=== PATIENT | male | born 1990 | race Caucasian/White ===

== ENCOUNTER 2020-03-07 18:56 | Emergency (ER) | payer SELFPAY ==
[2020-03-07 19:00] VITALS: PULSE 92; RESP 18; TEMP 36.7; O2SAT 99; BMI 22.4
--- NOTE | 2020-03-07 19:07 | ED_ITS ---
HPI - General Adult General: Chief complaint: General Medical Stated complaint: finger infected Time Seen by Provider: 03/07/20 19:07 History of Present Illness: HPI narrative: Patient is a 29-year-old male who comes to the ED with finger swelling and pain. Patient says that approximately 4 days ago he cut the third digit of his left hand with pocketknife. Cut over the joint. His finger now has erythema, warmth and swelling. He currently rates his pain a 9 out of 10. He says the swelling makes it hard for him to move and bend his finger. He has not taken anything for pain today. Patient says he does not need a tetanus shot and had 1 within the last 5 years. Patient is a history of MRSA and staph infections. Associated symptoms: Deny chest pain, dyspnea, headache(s), nausea, rash, palpitations or vomiting Review of Systems Const: Denies: fever(s), chills or fatigue Eyes: Denies: change in vision or eye discomfort ENMT: Denies: throat pain, odynophagia, nasal discharge or nasal congestion Card: Denies: chest pain, palpitations, edema, swelling of feet/ankles, dyspnea on exertion or orthopnea Resp: Denies: dyspnea, productive cough or non-productive cough GI: Denies: abdominal pain, nausea, vomiting, diarrhea, constipation or hematochezia : Denies: flank pain, difficulty urinating, dysuria or hematuria Musc: Denies: neck pain, back pain or extremity swelling Skin/Breast: Reports: new lesions; Denies: rash Neuro: Denies: headache(s), numbness in extremities or weakness in extremities Physical Exam Const: COMMON NORMALS: no acute distress, patient oriented x3 and alert GENERAL APPEARANCE: cooperative and comfortable HENMT: COMMON NORMALS: normocephalic HEAD & SCALP: normocephalic MOUTH: Normal oral and palatal mucosa present THROAT: posterior oropharynx normal and uvula midline Neck/C-Spine: COMMON NORMALS: supple GENERAL: Yes normal visual inspection Resp: COMMON NORMALS: normal respiratory effort, No retractions, No use of accessory muscles and clear to auscultation bilaterally AUSCULTATION: clear to auscultation bilaterally Cardio: COMMON NORMALS: regular rate, regular rhythm, S1 normal heart sound present, S2 normal heart sound present, No gallops present (Cardio), No clicks present (Cardio), No murmurs present (Cardio) and Peripheral pulses 2+ throughout RATE: regular rate RHYTHM: regular rhythm HEART SOUNDS: S1 normal heart sound present and S2 normal heart sound present PERIPHERAL PULSES: Peripheral pulses 2+ throughout GI: COMMON NORMALS: Normal to inspection, nondistended, normoactive bowel sounds present, Soft to palpation, non-tender and no masses PALPATION: Yes Soft to palpation : COMMON NORMALS: Yes no CVA tenderness BLADDER/KIDNEY EXAM: Yes no CVA tenderness Back/Pelvis: COMMON NORMALS: no CVA tenderness Extremity: COMMON NORMALS: capillary refill normal NARRATIVE EXTREMITY EXAM: Left hand?patient has cut that is healing on his third digit over his PIP joint. No purulent drainage seen. There is swelling, erythema, tenderness and warmth. Exam findings are suggestive of cellulitis. Neuro: COMMON NORMALS: patient oriented x3 and moves all extremities SENSORIUM/ORIENTATION: Yes alert Skin: NARRATIVE SKIN EXAM: Left hand?patient has cut that is healing on his third digit over his PIP joint. No purulent drainage seen. There is swelling, erythema, tenderness and warmth. Exam findings are suggestive of cellulitis. GENERAL SKIN EXAM: dry skin Course Vital Signs: Vital signs: Vital Signs Temperature 98.0 F 03/07/20 19:00 Pulse Rate 92 03/07/20 19:00 Respiratory Rate 16 03/07/20 20:27 Pulse Oximetry 99 03/07/20 19:00 MDM - General Adult MDM Narrative: Medical decision making narrative: Patient is a 29-year-old male comes to the ED with left hand third digit erythema and swelling. Patient cut himself with a knife approximately 4 days ago on third digit. He is developed increased pain erythema and swelling. Physical exam is suggestive of cellulitis. X-ray of left hand shows no acute fractures or findings. Patient was given a dose of Rocephin IM while here in the ED and then sent home with a prescription for Bactrim. He was told to return to ED if symptoms do not improve over the next 3 days. Follow-up with PCP in 7 to 10 days. Patient understood and agreed with plan. Imaging Data^: Xray Ortho: Attestation: I personally reviewed and interpreted this imaging study as follows: Radiologist's impression: [address] [address] XRay Report Signed Patient: Chava Correia Unit #: [id number] : 1990 Age/Sex: 29 / M ADM Date: 03/07/20 Loc: ER Room/Bed: Attending Dr: Ordering Provider/Ordering MD: Jorge Sabillon Date of Service: 03/07/20 Procedure(s): XR hand LT min 3V* 79839 Accession Number(s): [id number] Report Number: [id number] PROCEDURE INFORMATION: Exam: XR Left Hand Exam date and time: 03/07/2020 7:40 PM Age: 29 years old Clinical indication: Injury or trauma; Other: Injury to hand; Wound; Left; Additional info: Injury to 3rd digit TECHNIQUE: Imaging protocol: XR Left hand. Views: 3 or more views. COMPARISON: No relevant prior studies available. FINDINGS: Bones/joints: No visible acute osseous abnormality, fracture, subluxation, or dislocation. Soft tissues: Soft tissue swelling 3rd digit. No visible radiopaque foreign body or soft tissue emphysema. XR/XR hand LT min 3V* [id number] IMPRESSION: 1. No visible acute osseous abnormality. 2. Soft tissue swelling 3rd digit. Dictated By: Nayan Pearson Signed By: Nayan Pearson Signed Date/Time: 03/07/202099 DD/ 58 Discharge Plan Discharge Patient Disposition: Home Clinical Impression: Cellulitis Qualifiers: Site of cellulitis: extremity Site of cellulitis of extremity: finger Laterality: left Qualified Code(s): L03.012 - Cellulitis of left finger Condition: Stable Prescriptions: New Bactrim DS 800-160 mg tablet 1 tab PO BID 10 Days Qty: 20 RF: 0 No Action No Known Home Medications RF: 0 Discharge Orders: Discharge Order (Routine); Ordered 03/07/20 Ordered By: Jorge Sabillon Discharge Diet: Regular Discharge Activity: Increase activity as tolerated Patient Instructions: Cellulitis (ED) Activity Restrictions/Additional Instructions: Follow-up with medical provider as directed. Take medications as prescribed. Return to the ER or your medical provider if condition worsens. Please read and understand discharge instructions. If any questions, please ask. Discharge Date/Time: 03/07/20 20:27 Coding Level of Care Code ED Melt House Centrifugal Operator for Chg Fwd Exam Comprehensive
--- NOTE | 2020-03-07 19:12 | XRR_ITS ---
PROCEDURE INFORMATION: Exam: XR Left Hand Exam date and time: 03/07/2020 7:40 PM Age: 29 years old Clinical indication: Injury or trauma; Other: Injury to hand; Wound; Left; Additional info: Injury to 3rd digit TECHNIQUE: Imaging protocol: XR Left hand. Views: 3 or more views. COMPARISON: No relevant prior studies available. FINDINGS: Bones/joints: No visible acute osseous abnormality, fracture, subluxation, or dislocation. Soft tissues: Soft tissue swelling 3rd digit. No visible radiopaque foreign body or soft tissue emphysema. XR/XR hand LT min 3V* [id number] IMPRESSION: 1. No visible acute osseous abnormality. 2. Soft tissue swelling 3rd digit.
[2020-03-07] MEDS: HYDROcodone-acetaminophen 7.5-325 mg Tablet 1 TAB PO (19:23)
[2020-03-07] MEDS: cefTRIAXone 1,000 mg SDV 1000 MG IM (19:23)
[2020-03-07 20:27] VITALS: RESP 16
== END 2020-03-07 20:27 | disposition home or self-care (01) ==
PROVIDERS: Emergency Provider Physician Assistant
DX: L03.012 Cellulitis of left finger (principal)
CPT/HCPCS: 12345; 73130; 96372; 99282; 99283; J0696

== ENCOUNTER 2020-06-20 19:31 | Inpatient (IN) | payer SELFPAY ==
[2020-06-20 19:33] VITALS: BP 149/103; PULSE 105; RESP 18; TEMP 36.6; O2SAT 99; BMI 20.9
[2020-06-20 19:38] VITALS: BP 149/103; PULSE 105; RESP 18
--- NOTE | 2020-06-20 19:43 | ED_ITS ---
HPI - Psych General: Chief Complaint: Psychiatric Symptoms Stated Complaint: si Time Seen by Provider: 06/20/20 19:42 History of Present Illness: HPI Narrative: Patient is a 29-year-old male comes to the ED with SI. Patient said he has been really down and depressed over the past 2 weeks because he has not getting to see his kids. He also admits to taking speed last night. He says today he feels really depressed and wants to shoot himself in the head. Denies any HI, auditory or visual hallucinations. Endorses having some anxiety as well. Associated symptoms: Reports depression and suicidal ideation; Deny auditory hallucinations, visual hallucinations or homicidal ideation Review of Systems Const: Denies: fever(s), chills or fatigue Eyes: Denies: change in vision or eye discomfort ENMT: Denies: throat pain, odynophagia, nasal discharge or nasal congestion Card: Denies: chest pain, palpitations, edema, swelling of feet/ankles, dyspnea on exertion or orthopnea Resp: Denies: dyspnea, productive cough or non-productive cough GI: Denies: abdominal pain, nausea, vomiting, diarrhea, constipation or hematochezia : Denies: flank pain, difficulty urinating, dysuria or hematuria Musc: Denies: neck pain, back pain or extremity swelling Skin/Breast: Denies: rash or new lesions Neuro: Denies: headache(s), numbness in extremities or weakness in extremities Psych: Reports: depression and suicidal ideation; Denies: visual hallucinations, auditory hallucinations or homicidal ideation Physical Exam Const: COMMON NORMALS: no acute distress, patient oriented x3 and alert GE NERAL APPEARANCE: cooperative, comfortable and anxious HENMT: COMMON NORMALS: normocephalic HEAD & SCALP: normocephalic MOUTH: Normal oral and palatal mucosa present THROAT: posterior oropharynx normal and uvula midline Neck/C-Spine: COMMON NORMALS: supple GENERAL: Yes normal visual inspection Resp: COMMON NORMALS: normal respiratory effort, No retractions, No use of accessory muscles and clear to auscultation bilaterally AUSCULTATION: clear to auscultation bilaterally Cardio: COMMON NORMALS: regular rate, regular rhythm, S1 normal heart sound present, S2 normal heart sound present, No gallops present (Cardio), No clicks present (Cardio), No murmurs present (Cardio) and Peripheral pulses 2+ throughout RATE: regular rate RHYTHM: regular rhythm HEART SOUNDS: S1 normal heart sound present and S2 normal heart sound present PERIPHERAL PULSES: Peripheral pulses 2+ throughout GI: COMMON NORMALS: Normal to inspection, nondistended, normoactive bowel sounds present, Soft to palpation, non-tender and no masses PALPATION: Yes Soft to palpation : COMMON NORMALS: Yes no CVA tenderness BLADDER/KIDNEY EXAM: Yes no CVA tenderness Back/Pelvis: COMMON NORMALS: no CVA tenderness Neuro: COMMON NORMALS: patient oriented x3 and moves all extremities SENSORIUM/ORIENTATION: Yes alert Psych: COMMON NORMALS: Normal thought process present APPEARANCE: Yes grossly normal ATTITUDE: Yes calm ACTIVITY/MOTOR BEHAVIOR: Yes Avoids eye contact (attititude/behavior) SPEECH: Yes soft MOOD & AFFECT: Yes depressed mood and Yes anxious THOUGHT PROCESS: Normal thought process present THOUGHT CONTENT: Yes Suicidality present, No Homicidality present and No Hallucination(s) present ATTENTION/CONCENTRATION: Yes attention grossly intact and Yes concentration grossly intact MEMORY/COGNITION: Yes memory grossly intact and Yes cognition grossly intact INSIGHT: Fair insight present (Psych) JUDGEMENT: Fair judgement present (Psych) Skin: GENERAL SKIN EXAM: dry skin MDM - Psych MDM Narrative: Medical decision making narrative: Patient is a 29-year-old male comes to the ED with SI. Patient is depressed and says that he has been thinking about shooting himself in the head. He also admits to using some speed 2 days ago. He is willing to be admitted for evaluation. I contacted Dr. Ball and he accepted patient to be admitted to NPU. Before patient was taken up to the floor he was wanting to be discharged and go back home. I told him I would set up a video conference with Dr. Hernadez from to evaluate. Dr. Hernadez performed a video conference and suggested patient admits to the NPU and patient willingly agreed. Lab Data: Attestation: I reviewed the patient's lab results. Labs: Lab Results 06/20/20 06/20/20 Range/Units 20:15 20:15 WBC 9.4 (4.0-10.0) 10^3/ uL RBC 4.81 (4.1-5.3) 10^6/u L Hgb 14.7 (11.7-16.6) g/dL Hct 44.3 (42.0-52.0) % MCV 92.1 (80-94) fL MCH 30.6 (28.0-34.0) pg MCHC 33.2 (30.0-36.0) g/dL RDW 11.9 L (12.1-15.1) % Plt Count 241 (130-400) 10^3/c mm MPV 9.8 (7.4-10.4) fL Neut % (Auto) 69.7 % Lymph % (Auto) 16.8 % [place] % (Auto) 7.5 % Eos % (Auto) 4.6 % Baso % (Auto) 1.1 % Neut # (Auto) 6.58 (1.8-7.7) 10^3/u L Lymph # (Auto) 1.6 (0.8-4.8) 10^3/u L [place] # (Auto) 0.7 (0.2-0.9) 10^3/u L Eos # (Auto) 0.4 (0.0-0.8) 10^3/u L Baso # (Auto) 0.1 (0.0-0.1) 10^3/u L Nucleated RBC % (a uto) 0 % Nucleated RBCs # 0.0 /100WBC Sodium 138 (136-145) mmol/L Potassium 4.0 (3.5-5.1) mmol/L Chloride 100 (98-107) mmol/L Carbon Dioxide 30 H (22-29) mmol/L Anion Gap 12.0 (5-19) BUN 11 (6-20) mg/dL Creatinine 0.9 (0.7-1.2) mg/dL GFR Calculation 99.1 (90-130) mL/min Glucose 115 (65-115) mg/dL Calculated Osmolal ity 286 (285-295) mOsm/k g Calcium 9.1 (8.5-10.5) mg/dL Total Bilirubin 0.5 (0.15-1.2) mg/dL AST 50 H (0-40) U/L ALT 110 H (0-41) U/L Alkaline Phosphata se 95 (40-130) IU/L Total Protein 6.9 (6.6-8.7) g/dL Albumin 4.1 (3.5-5.2) g/dL Globulin 2.8 (1.3-4.6) g/dL Salicylates < 0.3 L (3-10) mg/dL Acetaminophen < 5.0 L (10-30) ug/mL Ethyl Alcohol < 10 (0-10) mg/dL Discharge Plan Discharge Admit Provider: Darío Ball Coding Level of Care Code ED Business Management Analyst for Chg Fwd Exam Comprehensive
[2020-06-20 19:50] VITALS: BP 142/88; PULSE 94; RESP 16; O2SAT 99
[2020-06-20 20:25] LABS: Basophils # 0.1 10^3/uL (0.0-0.1); Basophils % 1.1 %; Eosinophils # 0.4 10^3/uL (0.0-0.8); Eosinophils % 4.6 %; Hematocrit 44.3 % (42.0-52.0); Hemoglobin 14.7 g/dL (11.7-16.6); Lymphocytes # 1.6 10^3/uL (0.8-4.8); Lymphocytes % 16.8 %; Mean Corpuscular HGB Conc 33.2 g/dL (30.0-36.0); Mean Corpuscular Hemoglobin 30.6 pg (28.0-34.0); Mean Corpuscular Volume 92.1 fL (80-94); Mean Platelet Volume 9.8 fL (7.4-10.4); Monocytes # 0.7 10^3/uL (0.2-0.9); Monocytes % 7.5 %; Neutrophils # 6.58 10^3/uL (1.8-7.7); Neutrophils % 69.7 %; Nucleated Red Blood Cells % 0 %; Platelet Count 241 10^3/cmm (130-400); Red Blood Count 4.81 10^6/uL (4.1-5.3); Red Cell Distribution Width 11.9 % (12.1-15.1); White Blood Count 9.4 10^3/uL (4.0-10.0)
[2020-06-20 20:45] LABS: Alanine Aminotransferase 110 U/L (0-41); Albumin Level 4.1 g/dL (3.5-5.2); Alkaline Phosphatase 95 IU/L (40-130); Aspartate Amino Transferase 50 U/L (0-40); Blood Urea Nitrogen 11 mg/dL (6-20); Calcium 9.1 mg/dL (8.5-10.5); Carbon Dioxide 30 mmol/L (22-29); Chloride 100 mmol/L (98-107); Globulin 2.8 g/dL (1.3-4.6); Glomerular Filtration Rate 99.1 mL/min (90-130); Glucose 115 mg/dL (65-115); Osmolality Calculated 286 mOsm/kg (285-295); Sodium 138 mmol/L (136-145); Total Bilirubin 0.5 mg/dL (0.15-1.2); Total Protein 6.9 g/dL (6.6-8.7)
[2020-06-20] MEDS: LORazepam 2 mg Tablet PO (20:51)
[2020-06-20 20:52] LABS: Acetaminophen < 5.0 ug/mL (10-30); Alcohol Level < 10 mg/dL (0-10); Salicylate < 0.3 mg/dL (3-10)
[2020-06-20 21:32] VITALS: BP 144/91; PULSE 99; RESP 16; O2SAT 99
[2020-06-20 23:35] VITALS: BP 136/87; PULSE 104; RESP 18; TEMP 36.6; O2SAT 95
[2020-06-21 06:00] VITALS: BP 111/51; PULSE 121; RESP 17; TEMP 36.7; O2SAT 100
--- NOTE | 2020-06-21 11:45 | P.HP_ITS ---
Providers/Chief Complaint Admitting Physician: Darío Ball DO Chief Complaint: Suicidal ideation with plan to shoot himself HPI NPU History of Present Illness Chava Correia is a 29 year old male who initially reported no psychiatric history in the emergency department but subsequently states that he has been treated off and on throughout his teens with mood symptoms and ADHD as well as longstanding history of polysubstance abuse reporting that he used to be a heroin addict currently presenting with suicidal ideation stating that he was wanting to shoot himself in the head. Patient states that he has multiple stressors to include financial, unstable living arrangement, losing his kids and ongoing strain with mother of his children. He had reported in the emergency department that he is experiencing depressive symptoms over the past couple weeks which appear to be exacerbated by ongoing stressors. He denies any recent treatment by mental health. Patient reports recent methamphetamine use but states that this was the first time in a long time but also reports using marijuana on a daily basis. Patient reports remote use of heroin and states that he has a history of opioid dependence but denies any recent opiate use. Patient is a difficult historian secondary to anger and irritability stating that he is no longer suicidal and wants to leave the hospital. Patient states that he has been experiencing significant depressive symptoms, who would not after having the kids taken from them and having people F-ing with her bank account. Patient states that the only thing that helps him is Klonopin 0.5 mg twice daily which she reports previously being prescribed while he was living in [place] for his anxiety and depression. He states that he cannot tolerate any antidepressants because it makes him feel loopy. He states he has no interest in starting any medication at this time. He denies any psychotic symptoms, denies any auditory or visual destinations, denies any delusions although he does report some paranoia about people following him that her associates of his ex-girlfriend/mother of his children. He reports having an unstable living situation and was recently living with a friend and states that he would stay at a hotel after leaving the hospital. Review of Systems General: Reports: 10 or more systems reviewed and unremarkable except in HPI and below Meds NPU Home Medications Medication Instructions Recorded Confirmed Last Taken Type No Known Home Medications 03/07/20 06/21/20 Unknown History Allergies Allergy/AdvReac Type Severity Reaction Status Date / Time clindamycin Allergy ALGY-Rash Verified 06/20/20 19:38 [facility] N[facility] Other Psychiatric History: Other Psychiatric History: Patient states seeing a counselor and psychiatrist during his teens, reports last contact with a mental health provider within the past year while he was living in [place], states that he was being treated with Klonopin 0.5 mg twice daily for depression and anxiety, states that he does not tolerate antidepressants Denies any history of psychiatric hospitalization Denies any history of suicide attempts or self-harm behavior Mental Status Exam MSE Comments: Appears stated age, unshaven, appropriately groomed and dressed, initially calm and cooperative but subsequently irritable and angry, eye contact Psychomotor activity is neither increased nor decreased although demonstrated some verbal agitation which was easily redirected Speech is normal rate and volume, spontaneous, clear articulation, not pressured, cursing I am very upset, angry, , congruent affect, not labile Alert and oriented to person, place, time, situation Memory and concentration appear to be intact per interview Intellectual functioning appears to be average at best based on vocabulary, interview Thought process, linear, no flight of ideas, no looseness of association Thought content, no delusions, no hallucinations, no suicidal or homicidal ideation Insight and judgment is fair at best given ongoing substance use in the context of multiple life stressors as well as lack of insight into the events leading to his hospitalization and the serious nature of the consequences of his reported suicidal thoughts with a lethal means and need for treatment Vitals/I&O/Wt Last Vital Signs Temp 98.0 F 06/21/20 06:00 Pulse 121 H 06/21/20 06:00 Resp 17 06/21/20 06:00 BP 111/51 06/21/20 06:00 Pulse Ox 100 06/21/20 06:00 Weight last 48 hrs Weight 70.307 kg Physical Exam Narrative: EXAM NARRATIVE: Emergency department physical examination prior to admission was reviewed Data NPU : 06/20/20 20:15 06/20/20 20:15 A&P Assessment and plan (1) Suicidal ideation: Status: Acute (2) Depressive disorder: Status: Acute (3) Cannabis abuse: Status: Acute (4) Methamphetamine abuse: Status: Acute Additional A&P Information Patient presenting to the emergency department requesting treatment for suicidal ideation making statement that he wanted to shoot himself in the head, in the context of multiple ongoing stressors, worsening depressive symptoms over the past couple weeks and ongoing substance use. Patient would benefit from observation for any worsening suicidal ideation and depressive symptoms as well as coordination for post discharge care. Patient currently refusing any antidepressant treatment for depressive symptoms and continues to be irritable and angry with lack of insight into the serious nature of his reported complaints. INVOLUNTARY ADMIT to NPU Discussed risks, benefits and alternatives to antidepressant treatment targeting his depressive symptoms as well as history of significant anxiety symptoms which the patient refused at this time. Also discussed benefit of observation given recent worsening suicidal ideation in the context of ongoing stressors Coordinate with social work for safe discharge including post discharge counseling targeting more adaptive coping strategies as well as substance counseling Involuntary Hold Information 96 Hour Hold: 96 Hour Involuntary Admission: Yes 96 Hour Hold Start Date: 06/21/20 Attestations NPU Medical Necessity Statement*: Patient required psychiatric hospitalization given recent suicidal ideation with intent to use lethal means as well as worsening depressive symptoms requiring observation given patient's refusal for medication stabilization and ongoing substance use. Anticipate duration of patient's hospital stay to exceed 2 midnights Coding Level of Care Code Acute Lay Out Machine Operator for [facility] Diagnoses Suicidal ideation R45.851 Depressive disorder F32.9 Cannabis abuse F12.10 Methamphetamine abuse F15.10
[2020-06-21 14:00] VITALS: RESP 18
--- NOTE | 2020-06-21 14:40 | PC.NURSE ---
pt refused vitals @1411/nathan
[2020-06-21 20:05] VITALS: BP 113/67; PULSE 97; RESP 16; TEMP 36.5; O2SAT 97
--- NOTE | 2020-06-21 20:58 | PC.NURSE ---
PATIENT AT [facility] WANTS TO TALK ON TELEPSYCH WITH DR PADILLA BECAUSE HE IS NOT SUICIDAL AND WANTS TO GET OUT OF HERE. INFORMED THAT DR PADILLA NOT HALL COORDINATOR. DID CALL DR YOO, SAYS PATIENT IS ON 96 HOUR HOLD AND HE SAID WAS GOING TO KILL SELF WITH GUN AND NO HE CAN NOT LEAVE. HAS TO BE REEVALUATED IN AM . PATIENT STOMPED OFF DOWN ARCOS TOWARD HIS ROOM.
[2020-06-22 06:00] VITALS: RESP 17
--- NOTE | 2020-06-22 12:35 | P.DS_ITS ---
Diagnoses at Discharge Discharge Diagnosis (1) Suicidal ideation: Status: Acute (2) Depressive disorder: Status: Acute (3) Cannabis abuse: Status: Acute (4) Methamphetamine abuse: Status: Acute Reason for Visit Reason for Visit: Suicidal ideation with plan to shoot himself Hospital Course Hospital Course 29-year-old male with unclear past psychiatric history reporting history of ADHD and polysubstance abuse presented to the emergency department after recent methamphetamine use with suicidal ideation stating that he was going to shoot himself. Patient subsequently stated that he was stressed out about strained relationship with the mother of his children and multiple other external stressors to include finances and unstable living arrangement. Patient was extremely irritable and uncooperative throughout hospital stay not cooperating with staff and refusing care. Patient had mentioned depressive symptoms but most of these were purely in the context of ongoing stressors and unable to clarify as to whether he has experienced any sustained depressive symptoms outside of the influence of the stressors. Patient refused antidepressant treatment targeting the symptoms. Patient also refused any post discharge substance treatment. Patient had several episodes of verbal agitation but was able to be behaviorally redirected. Patient required no as needed medication throughout his hospital stay and did not demonstrate any psychotic symptoms or perceptual disturbances. Patient did not communicate any suicidal ideation throughout his hospital stay and was not suicidal at the time of discharge. Low to moderate risk of harm to self and others given no current suicidal ideation and no current psychiatric symptoms although patient may continue to have an elevated risk if he continues to abuse illicit substances and alcohol and continues to demonstrate maladaptive coping strategies leading to unexpected, impulsive behaviors. Risk mitigation included psychiatric hospitalization for observation for any continued suicidal ideation or worsening psychiatric symptoms as well as recommendation to abstain from the use of any substances and alcohol; recommendation to seek mental health counseling targeting his substance use as well as developing more adaptive, appropriate coping strategies to deal with his ongoing stressors. Patient was able to communicate his understanding of the above recommendations but refused follow-up care coordination prior to discharge. Patient was able to communicate that he would return to the emergency department if he was experiencing worsening symptoms. Involuntary Hold Information 96 Hour Hold: 96 Hour Involuntary Admission: Yes 96 Hour Hold Start Date: 06/21/20 Mental Status Exam MSE Comments: Appears stated age, unshaven, appropriately dressed, calm, cooperative, interactive, good eye contact Psychomotor activity is neither increased nor decreased, no agitation Speech is normal rate and volume, spontaneous, clear reticulation, not pressured I am okay, full range, not labile Alert and oriented to person, place, time, situation Memory and concentration appear to be intact per interview Intellectual functioning appears to be average at best per vocabulary, interview Thought process, linear, no flight of ideas, no looseness of associations Thought content, no delusions, no hallucinations, no suicidal or homicidal ideation Insight and judgment are fair to intact Discharge Data Vitals: Last Vital Signs Temp 97.7 F 06/21/20 20:05 Pulse 97 06/21/20 20:05 Resp 17 06/22/20 06:00 BP 113/67 06/21/20 20:05 Pulse Ox 97 06/21/20 20:05 Discharge Plan Discharge Patient Disposition: Home Condition: Stable Prescriptions: No Action No Known Home Medications RF: 0 Discharge Orders: Discharge Order (Routine); Ordered 06/22/20 Ordered By: Darío Ball Discharge Diet: Regular Discharge Activity: Resume usual activity Discharge Attestations NPU Time Spent in Discharge Care*: greater than 30 min Status at Discharge: Cognitive status at discharge: cognitively intact , Behavioral status at discharge: cooperative , Overall status at discharge: patient is back to baseline Coding Level of Care Code Acute Workers Compensation Administrator for [facility] Fwd Diagnoses Suicidal ideation R45.851 Depressive disorder F32.9 Cannabis abuse F12.10 Methamphetamine abuse F15.10
[2020-06-22 13:10] VITALS: BP 137/79; PULSE 95; RESP 18; TEMP 36.9; O2SAT 95
[2020-06-22 13:20] VITALS: BP 137/79; PULSE 70; RESP 18; TEMP 36.9
== END 2020-06-22 13:17 | disposition home or self-care (01) | DRG 881 ==
LOC: ER 21:25 → NP 22:54
PROVIDERS: Admitting Provider Psychiatry & Neurology Psychiatry; Emergency Provider Physician Assistant; Visit Provider Psychiatry & Neurology Psychiatry
DX: F32.9 Major depressive disorder, single episode, unspecified (principal); R45.851 Suicidal ideations; F90.9 Attention-deficit hyperactivity disorder, unspecified type; Z63.0 Problems in relationship with spouse or partner; F15.10 Other stimulant abuse, uncomplicated; F12.10 Cannabis abuse, uncomplicated
CPT/HCPCS: 12345; 80053; 80307; 85025; 99284

== ENCOUNTER 2020-06-28 21:32 | Inpatient (IN) | payer SELFPAY ==
[2020-06-28 21:34] VITALS: BP 159/106; PULSE 111; RESP 16; TEMP 36.4; O2SAT 97; BMI 20.9
[2020-06-28 21:48] LABS: Basophils # 0.1 10^3/uL (0.0-0.1); Basophils % 0.9 %; Eosinophils # 0.2 10^3/uL (0.0-0.8); Hematocrit 41.4 % (42.0-52.0); Hemoglobin 13.9 g/dL (11.7-16.6); Mean Corpuscular HGB Conc 33.6 g/dL (30.0-36.0); Mean Corpuscular Hemoglobin 30.3 pg (28.0-34.0); Mean Corpuscular Volume 90.2 fL (80-94); Mean Platelet Volume 9.5 fL (7.4-10.4); Monocytes # 0.9 10^3/uL (0.2-0.9); Monocytes % 12.2 %; Neutrophils # 4.32 10^3/uL (1.8-7.7); Neutrophils % 57.8 %; Nucleated Red Blood Cells % 0 %; Platelet Count 253 10^3/cmm (130-400); Red Blood Count 4.59 10^6/uL (4.1-5.3); White Blood Count 7.5 10^3/uL (4.0-10.0)
[2020-06-28 22:18] LABS: Alanine Aminotransferase 128 U/L (0-41); Albumin Level 4.1 g/dL (3.5-5.2); Alkaline Phosphatase 96 IU/L (40-130); Anion Gap 13.9 (5-19); Aspartate Amino Transferase 47 U/L (0-40); Blood Urea Nitrogen 17 mg/dL (6-20); Calcium 9.4 mg/dL (8.5-10.5); Carbon Dioxide 26 mmol/L (22-29); Chloride 101 mmol/L (98-107); Globulin 3.1 g/dL (1.3-4.6); Glomerular Filtration Rate 87.7 mL/min (90-130); Glucose 137 mg/dL (65-115); Osmolality Calculated 288 mOsm/kg (285-295); Potassium 3.9 mmol/L (3.5-5.1); Sodium 137 mmol/L (136-145); Total Bilirubin 0.3 mg/dL (0.15-1.2); Total Protein 7.2 g/dL (6.6-8.7)
[2020-06-28 22:25] LABS: Acetaminophen < 5.0 ug/mL (10-30); Alcohol Level < 10 mg/dL (0-10); Salicylate < 0.3 mg/dL (3-10)
[2020-06-28 22:34] VITALS: BP 122/63; PULSE 110; RESP 18; TEMP 36.9; O2SAT 100
[2020-06-28 22:38] LABS: Amphetamines Screen Urine Positive (Negative); Barbiturates Screen Urine Negative (Negative); Benzodiazepines Screen Urine Negative (Negative); Cocaine Screen Urine Negative (Negative); Opiate Screen Urine Negative (Negative); PCP Screen Urine Negative (Negative); THC Screen Urine Positive (Negative)
--- NOTE | 2020-06-28 23:03 | ED_ITS ---
HPI - Psych General: Chief Complaint: Psychiatric Symptoms Stated Complaint: SELF HARM Time Seen by Provider: 06/28/20 21:41 Source: patient Mode of arrival: EMS Limitations: no limitations History of Present Illness: HPI Narrative: The patient is a 29 year old male who was brought in by law enforcement and EMS with complaints of suicidal ideation. He states that he is having plenty of social issues including with the mother of his children. He states that she is trying to take his children away from him, and he is feeling very depressed and he is suicidal. He said he would like to shoot himself with a gun but he does not mess with guns , but that he would overdose on drugs. He uses marijuana and methamphetamines. MD complaint: suicidal ideation and feels depressed Duration: constant and getting worse History of same: No Relieving factors: none Exacerbating factors: drug use Context: recent drug abuse Associated psychiatric symptoms: depression and suicidal ideation Associated symptoms: Reports depression and suicidal ideation; Deny auditory hallucinations, visual hallucinations, delusions, homicidal ideation or racing thoughts If self harm: admits thoughts of self harm and has plan Review of Systems General: Reports: 10 or more systems reviewed and unremarkable except in HPI and below Const: Denies: fever(s), chills or body aches Eyes: Denies: change in vision or blurry vision ENMT: Denies: throat pain, enlarged tonsils, odynophagia, hoarseness, mouth pain or swelling of lips/tongue Card: Denies: palpitations, irregular heart rhythm, edema or swelling of feet/ankles Resp: Denies: dyspnea, productive cough or non-productive cough GI: Denies: abdominal pain, nausea or vomiting : Denies: flank pain, dysuria, urinary frequency, urinary urgency or urinary hesitancy Musc: Denies: neck pain, back pain or extremity swelling Skin/Breast: Denies: rash, pruritus or erythema Neuro: Denies: headache(s), numbness in extremities or weakness in extremities Psych: Reports: depression and suicidal ideation; Denies: visual hallucinations, auditory hallucinations or homicidal ideation Endo: Denies: polyuria, polydipsia or tired all the time Physical Exam Const: COMMON NORMALS: no acute distress, average body habitus, patient oriented x3, no limitations, healthy appearing, alert and well nourished HENMT: COMMON NORMALS: normocephalic, atraumatic and moist oral mucous membranes HEAD & SCALP: normocephalic and atraumatic Neck/C-Spine: COMMON NORMALS: no meningeal signs and no JVD Resp: COMMON NORMALS: normal respiratory effort, No retractions, No use of accessory muscles, clear to auscultation bilaterally and percussion normal AUSCULTATION: clear to auscultation bilaterally PERCUSSION: percussion normal Cardio: COMMON NORMALS: no JVD, regular rate, regular rhythm, S1 normal heart sound present, S2 normal heart sound present, No gallops present (Cardio), No clicks present (Cardio), No murmurs present (Cardio), No rub (Cardio) and Peripheral pulses 2+ throughout RATE: regular rate RHYTHM: regular rhythm HEART SOUNDS: S1 normal heart sound present and S2 normal heart sound present PERIPHERAL PULSES: Peripheral pulses 2+ throughout GI: COMMON NORMALS: Normal to inspection, nondistended, normoactive bowel sounds present, Soft to palpation, non-tender, No hepatosplenomegaly present, no masses and no bruits PALPATION: Yes Soft to palpation and Yes No hepatosplenomegaly present Extremity: COMMON NORMALS: normal to inspection, full ROM, capillary refill normal, no calf tenderness and no pedal edema Neuro: COMMON NORMALS: patient oriented x3 SENSORIUM/ORIENTATION: Yes alert MENINGEAL SIGNS: Yes no meningeal signs Psych: THOUGHT CONTENT: No delusions Skin: COMMON NORMALS: no rashes or lesions noted, no wounds, turgor normal, no jaundice, no petechiae and no mottling GENERAL SKIN EXAM: no rashes or lesions noted and turgor normal MDM - Psych MDM Narrative: Medical decision making narrative: 29-year-old male who was brought into the emergency department with law enforcement and ambulance with complaints of suicidal ideation. The patient has plenty of social issues going on and just feeling down and depressed and felt suicidal. He is plan was to overdose on drugs. He also abuses methamphetamines and marijuana. [place] records management officer that brought him in filled out an affidavit stating that the patient informed him that he was suicidal. Patient also told me that he was suicidal. He is medically cleared and admitted to the neuropsychiatric unit for further evaluation and management. Medical Records: Attestation: I reviewed the patient's medical records. Lab Data: Attestation: I reviewed the patient's lab results. Labs: Lab Results 06/28/20 06/28/20 06/28/20 Range/Units 21:40 21:40 22:16 WBC 7.5 (4.0-10.0) 10^3/ uL RBC 4.59 (4.1-5.3) 10^6/u L Hgb 13.9 (11.7-16.6) g/dL Hct 41.4 L (42.0-52.0) % MCV 90.2 (80-94) fL MCH 30.3 (28.0-34.0) pg MCHC 33.6 (30.0-36.0) g/dL RDW 12.0 L (12.1-15.1) % Plt Count 253 (130-400) 10^3/c mm MPV 9.5 (7.4-10.4) fL Neut % (Auto) 57.8 % Lymph % (Auto) 27.0 % [place] % (Auto) 12.2 % Eos % (Auto) 2.0 % Baso % (Auto) 0.9 % Neut # (Auto) 4.32 (1.8-7.7) 10^3/u L Lymph # (Auto) 2.0 (0.8-4.8) 10^3/u L [place] # (Auto) 0.9 (0.2-0.9) 10^3/u L Eos # (Auto) 0.2 (0.0-0.8) 10^3/u L Baso # (Auto) 0.1 (0.0-0.1) 10^3/u L Nucleated RBC % (a uto) 0 % Nucleated RBCs # 0.0 /100WBC Sodium 137 (136-145) mmol/L Potassium 3.9 (3.5-5.1) mmol/L Chloride 101 (98-107) mmol/L Carbon Dioxide 26 (22-29) mmol/L Anion Gap 13.9 (5-19) BUN 17 (6-20) mg/dL Creatinine 1.0 (0.7-1.2) mg/dL GFR Calculation 87.7 L (90-130) mL/min Glucose 137 H (65-115) mg/dL Calculated Osmolal ity 288 (285-295) mOsm/k g Calcium 9.4 (8.5-10.5) mg/dL Total Bilirubin 0.3 (0.15-1.2) mg/dL AST 47 H (0-40) U/L ALT 128 H (0-41) U/L Alkaline Phosphata se 96 (40-130) IU/L Total Protein 7.2 (6.6-8.7) g/dL Albumin 4.1 (3.5-5.2) g/dL Globulin 3.1 (1.3-4.6) g/dL Salicylates < 0.3 L (3-10) mg/dL Urine Opiates Scre en Negative (Negative) ng/mL Acetaminophen < 5.0 L (10-30) ug/mL Ur Barbiturates Sc reen Negative (Negative) ng/mL Ur Phencyclidine S crn Negative (Negative) ng/mL Ur Amphetamines Sc reen Positive H (Negative) ng/mL U Benzodiazepines Scrn Negative (Negative) ng/mL Urine Cocaine Scre en Negative (Negative) ng/mL U Marijuana (THC) Screen Positive H (Negative) ng/mL Ethyl Alcohol < 10 (0-10) mg/dL Discharge Plan Discharge Patient Disposition: Admitted As Inpatient Admit Provider: Darío Ball Clinical Impression: Suicidal ideation, Methamphetamine abuse, Cannabis abuse Condition: Stable Coding Level of Care Code ED Physician Asst for [facility]
[2020-06-29 00:10] VITALS: BP 132/93; PULSE 98; RESP 16; TEMP 36.6; O2SAT 97
[2020-06-29] MEDS: hyDROXYzine 25 mg Capsule 50 MG PO ×2 (01:38→19:35)
[2020-06-29] MEDS: OLANZapine 5 mg ODT PO (01:39)
--- NOTE | 2020-06-29 02:55 | PC.NURSE ---
01:20 Patient requesting something for anxiety and fear. 01:38 administered 50mg Vistaril for anxiety and 5mg Zyprexa Zydus for agitation / paranoia. Patient is now resting in bed.
[2020-06-29 05:02] VITALS: BP 130/91; PULSE 89; RESP 16; TEMP 36.6; O2SAT 96
[2020-06-29 05:37] VITALS: BMI 20.9
--- NOTE | 2020-06-29 09:28 | PC.NURSE ---
PT NOTE; Friend of the client came requesting a belt that belongs to his sister from patients belongings. Mr. Correia gave staff permission to return the belt to his friend. Rn nurse Peacock and Rn nurse Galeas witnessed clients verbal agreement to give belt to his friend.
--- NOTE | 2020-06-29 11:54 | P.HP_ITS ---
Providers/Chief Complaint Admitting Physician: Darío Ball DO Chief Complaint: SELF HARM HPI NPU History of Present Illness Chava Correia is a 29 year old male who recently presented to the emergency department with same complaint of suicidal ideation with threats of shooting his head presents with worsening depressive symptoms in the context of ongoing stressors, positive UDS for methamphetamine and cannabis. Patient will not participate in interview at this time. Significant concern given close proximity of last presentation with same complaint and continued instability with ongoing substance use with concerns about unexpected behavior, impulsivity which may lead to unintentional harm or suicide. Previous encounters were reviewed as part of this evaluation. Review of Systems General: Reports: ROS unobtainable due to mental status Meds NPU Home Medications Medication Instructions Recorded Confirmed Last Taken Type No Known Home Medications 03/07/20 06/29/20 Unknown History Allergies Allergy/AdvReac Type Severity Reaction Status Date / Time clindamycin Allergy ALGY-Rash Verified 06/20/20 19:38 [facility] NPU Other Psychiatric History: Other Psychiatric History: No changes from previous evaluation completed at time of admission by this interviewer on 06/21/2020 Mental Status Exam MSE Comments: Lying in bed with blanket pulled over his head, will not make eye contact, states that he does not want to talk at this time. Psychomotor activity is decreased, no agitation Does not appear to be attending to any internal stimuli Insight and judgment appear to be limited at this time Vitals/I&O/Wt Last Vital Signs Temp 97.9 F 06/29/20 05:02 Pulse 89 06/29/20 05:02 Resp 16 06/29/20 05:02 BP 130/91 06/29/20 05:02 Pulse Ox 96 06/29/20 05:02 Weight last 48 hrs Weight 70.307 kg Weight 70.307 kg Data NPU : 06/28/20 21:40 06/28/20 21:40 A&P Assessment and plan (1) Suicidal ideation: Status: Acute (2) Depressive disorder: Status: Acute (3) Methamphetamine abuse: Status: Acute (4) Cannabis abuse: Status: Acute Additional A&P Information Patient presenting with similar presentation as last episode of care in which she presented to the emergency department with worsening depressive symptoms, suicidal ideation with threat of shooting himself in the head, currently not participating in interview, refusing medication. INVOLUNTARY ADMIT to inpatient psychiatry Continue to monitor, will reassessment patient is willing to participate in interview as well as readdressing need for medication stabilization as well as coordinating for post discharge substance treatment and psychiatric follow-up Involuntary Hold Information 96 Hour Hold: 96 Hour Involuntary Admission: Yes 96 Hour Hold Start Date: 06/21/20 96 Hour Hold Ending Date: 07/03/20 96 Hour Hold Ending Time: 21:59 Attestations NPU Medical Necessity Statement*: Patient requires psychiatric utilization given recent suicidal behaviors and recent admission and concerns for unexpected, impulsive behavior as well as need for medication stabilization Time Spent in Patient Care: Greater than 35 minutes Coding Level of Care Code Acute Master Deputy [employer] Security for [facility] Fwd Diagnoses Suicidal ideation R45.851 Depressive disorder F32.9 Methamphetamine abuse F15.10 Cannabis abuse F12.10
[2020-06-29 14:00] VITALS: BP 96/57; PULSE 81; RESP 16; TEMP 36.6; O2SAT 96
[2020-06-29 19:22] VITALS: BP 108/63; PULSE 86; RESP 18; TEMP 37.2; O2SAT 97
[2020-06-29] MEDS: trazodone 50 mg Tablet PO (19:35)
[2020-06-30 06:00] VITALS: BP 95/60; PULSE 77; RESP 19; TEMP 37; O2SAT 95
--- NOTE | 2020-06-30 13:04 | P.PN_ITS ---
Subjective NPU Subjective: Interval history: Initially refusing interview with eyes closed and not answering questions but subsequently states I want to talk about it. Patient was asked about why he presented to the hospital to which he stated I just wanted to come in because had nowhere else to go and was upset. When confronted with the fact that he had refused treatment last time and was extremely rude to staff, patient states that is why I do not want to talk. Patient states he continues to have depressive symptoms in the context of his ongoing stressors and reports that he would only be helped if he could be given his phone so he can coordinate for his unemployment check. Patient did eventually agree to start an antidepressant targeting his depressive and anxiety symptoms. Patient reports that he would to substance rehab but does not want to pay for transportation to attend post discharge rehab. Patient currently denying any suicidal ideation. Mental Status Exam MSE Comments: Lying in bed, tired appearing, poor eye contact, initially with eyes closed only, poor rapport, rude Psychomotor activity is neither increased nor decreased, no agitation although intermittent verbal agitation at times Speech is loud on occasion, spontaneous, not pressured, fair articulation I am upset, congruent affect, irritable and angry Alert and oriented to person, place, time Memory and concentration appear to be fair based on interview Intellectual functioning appears to be average at best based on vocabulary, interview Thought process, linear but brief, no flight of ideas, no looseness of association Thought content, no delusions, no flight of ideas, no looseness of associations Insight and judgment appear to be poor given patient's lack of insight into his situation, substance use and its contribution to his problems as well as lack of insight into the events leading to his hospitalization Vitals/I&O/Wt Last Vital Signs Temp 98.6 F 06/30/20 06:00 Pulse 77 06/30/20 06:00 Resp 19 H 06/30/20 06:00 BP 95/60 06/30/20 06:00 Pulse Ox 95 06/30/20 06:00 Weight last 48 hrs Weight 70.307 kg Weight 70.307 kg Data NPU : 06/28/20 21:40 06/28/20 21:40 A&P Assessment and plan (1) Suicidal ideation: Status: Acute (2) Depressive disorder: Status: Acute (3) Methamphetamine abuse: Status: Acute (4) Cannabis abuse: Status: Acute Additional A&P Information Patient has little, if any, insight into his circumstances of ongoing substance use and strained relationship with mother of his child with ongoing safety c oncerns about potential harm to himself and others during periods in which she is intoxicated with methamphetamine as well as his endorsement of suicidal ideation with threat of shooting himself and ongoing depressive symptoms despite his refusal of medication treatment and recommendation for post discharge substance treatment. CONTINUE 96-hour hold START citalopram 10 mg daily targeting mood, depressive symptoms Continue to monitor Coordinate with psychotherapist social worker for post discharge substance counseling/treatment Involuntary Hold Information 96 Hour Hold: 96 Hour Involuntary Admission: Yes 96 Hour Hold Start Date: 06/21/20 96 Hour Hold Ending Date: 07/03/20 96 Hour Hold Ending Time: 21:59 Attestations NPU Medical Necessity Statement*: Continues to require psychiatric hospitalization for medication stabilization as well as ongoing observation given patient's persistent pattern of suicidal ideation with threat of shooting himself in the context of ongoing substance use despite recommendation to abstain given patient's intermittent suicidal ideation and depressive symptoms Coding Level of Care Code Acute Patient Ombudsperson for [facility] Fwd Diagnoses Suicidal ideation R45.851 Depressive disorder F32.9 Methamphetamine abuse F15.10 Cannabis abuse F12.10
[2020-06-30 14:00] VITALS: BP 101/68; PULSE 78; RESP 16; TEMP 37; O2SAT 97
[2020-06-30] MEDS: hyDROXYzine 25 mg Capsule 50 MG PO (19:55)
[2020-06-30] MEDS: trazodone 50 mg Tablet PO (19:55)
[2020-06-30 19:58] VITALS: BP 119/74; PULSE 78; RESP 18; TEMP 36.8; O2SAT 97
[2020-07-01 06:00] VITALS: BP 115/61; PULSE 78; RESP 18; TEMP 36.5; O2SAT 96
--- NOTE | 2020-07-01 08:09 | PC.NURSE ---
refused scheduled Celexa
[2020-07-01 14:00] VITALS: BP 106/65; PULSE 86; RESP 18; TEMP 36.9; O2SAT 97
--- NOTE | 2020-07-01 14:57 | PM.NPN ---
Subjective NPU Subjective: Interval history: Continues to be irritable but denies any depressed symptoms, denies any suicidal ideation Patient continues to vacillate between agreeing to do post discharge substance treatment and then subsequently reports not being able to get a hold of the facility. Patient continues to refuse treatment and does not participate in care. Mental Status Exam MSE Comments: Standing at nurses station, irritable, poor rapport, rude Psychomotor activity is neither increased nor decreased, no agitation Speech is loud on occasion, spontaneous, not pressured, fair articulation I am upset, irritable and angry Alert and oriented to person, place, time Memory and concentration appear to be fair based on interview Thought process, linear but brief, no flight of ideas, no looseness of association Thought content, no delusions, no flight of ideas, no looseness of associations Insight and judgment appear to be poor given patient's lack of insight into his situation, substance use and its contribution to his problems as well as lack of insight into the events leading to his hospitalization Vitals/I&O/Wt Last Vital Signs Temp 98.5 F 07/01/20 14:00 Pulse 86 07/01/20 14:00 Resp 18 07/01/20 14:00 BP 106/65 07/01/20 14:00 Pulse Ox 97 07/01/20 14:00 Data NPU : 06/28/20 21:40 06/28/20 21:40 A&P Assessment and plan (1) Suicidal ideation: Status: Acute (2) Depressive disorder: Status: Acute (3) Methamphetamine abuse: Status: Acute (4) Cannabis abuse: Status: Acute Additional A&P Information Continues to lack insight into the cause of his 2 recent admissions related to methamphetamine as well as the concern for potential safety issues if he continues to use substances and refuse psychotropic medication treatment for his reported recent depressive symptoms as well as report of suicidal ideation during these time periods. CONTINUE 96-hour hold, continue to monitor for unexpected, impulsive behavior, will reevaluate tomorrow in conjunction with coordination for safe discharge CONTINUE to offer prescribed medication, patient has been refusing Continue to monitor Involuntary Hold Information 96 Hour Hold: 96 Hour Involuntary Admission: Yes 96 Hour Hold Start Date: 06/21/20 96 Hour Hold Ending Date: 07/03/20 96 Hour Hold Ending Time: 21:59 Attestations NPU Medical Necessity Statement*: Continues require psychiatric hospitalization for observation given recent volatility of mood and affect, reported suicidal ideation as well as poor insight and lack of participation of care in order to coordinate for safe discharge Coding Level of Care Code Acute Equipment Mechanic Specialist for [facility] Fwd Diagnoses Suicidal ideation R45.851 Depressive disorder F32.9 Methamphetamine abuse F15.10 Cannabis abuse F12.10
[2020-07-01 19:57] VITALS: BP 111/66; PULSE 99; RESP 20; TEMP 36.6; O2SAT 94
[2020-07-01] MEDS: hyDROXYzine 25 mg Capsule 50 MG PO (21:10)
[2020-07-01] MEDS: OLANZapine 5 mg ODT PO (21:10)
[2020-07-01] MEDS: nicotine 2 mg Gum BUCCAL (21:14)
--- NOTE | 2020-07-01 22:33 | PC.NURSE ---
patient was feeling agitated at 2100 requested PRN Zyprexa 5 mg.
[2020-07-02 06:00] VITALS: BP 137/85; PULSE 116; RESP 18; TEMP 36.9; O2SAT 96
--- NOTE | 2020-07-02 08:39 | PC.NURSE ---
refused scheduled celexa
--- NOTE | 2020-07-02 09:20 | PM.NDC ---
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 During both hospitalizations patient has been offered low-dose antidepressant medication to help with mood and affect lability which appear to mostly be from his personality structure given no report of any sustained low mood states outside the context of his substance use and constant interpersonal difficulties. Patient has a tendency to externalize blame and becomes even more irate and angry when this is pointed out to him as well as his ongoing use of substances. Patient has been offered during both hospitalizations coordination for post discharge substance treatment but has refused on both occasions despite availability of care. Patient denied any suicidal ideation throughout his hospital stay. Patient was not suicidal or homicidal at the time of his discharge but continues to blame staff for his phone not being charged and for his current situation. Low to moderate risk of harm to self or others given ongoing personality structure issues of externalizing blame for his ongoing substance use and interpersonal difficulties with likely elevation of his risk if he continues to use substances and acting unexpectedly and impulsively secondary to his personality and substance use which may potentially lead to harming himself. Patient's personality based and substance based harm risk is impossible to mitigate by medication or hospitalization alone but patient was placed on involuntary hold for 96-hour period for observation given his recent escalation of personality based episodes of anger and irritability. Patient was also offered low-dose antidepressant per above as well as post discharge substance treatment and counseling to help mitigate his risk, but he refused. Patient refuses to acknowledge the above recommendations provided to help mitigate his risk of harm to self and others and continues to only blame the hospital and staff for his situation. Involuntary Hold Information 96 Hour Hold: 96 Hour Involuntary Admission: Yes 96 Hour Hold Start Date: 06/21/20 96 Hour Hold Ending Date: 07/03/20 96 Hour Hold Ending Time: 21:59 Discharge Data Vitals: Last Vital Signs Temp 98.4 F 07/02/20 06:00 Pulse 116 H 07/02/20 06:00 Resp 18 07/02/20 06:00 BP 137/85 07/02/20 06:00 Pulse Ox 96 07/02/20 06:00 Discharge Plan Discharge Patient Disposition: Home Condition: Stable Prescriptions: New citalopram 20 mg Tablet 10 mg PO DAILY Qty: 30 RF: 0 Discharge Orders: Discharge Order (Routine); Ordered 07/02/20 Ordered By: Darío Ball Referrals: [facility] [Other] (Accepted after 4pm. Friend [facility] to provide transportation.) [facility] [Outside] (Can check for bed on 07/03/20. Will need to go to [facility] for warrant check prior to arrival) Discharge Diet: Regular Discharge Activity: Resume usual activity Patient Instructions: Citalopram (By mouth) Discharge Attestations NPU Time Spent in Discharge Care*: greater than 30 min Status at Discharge: Cognitive status at discharge: cognitively intact, Behavioral status at discharge: cooperative, Coding Level of Care Code Acute Aviation Maintenance Technician for [facility] Fwd Diagnoses Suicidal ideation R45.851 Depressive disorder F32.9 Methamphetamine abuse F15.10 Cannabis abuse F12.10
[2020-07-02 09:28] VITALS: BP 137/85; PULSE 116; RESP 18; TEMP 36.9; O2SAT 96
--- NOTE | 2020-07-02 09:29 | PM.NDC ---
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 During both hospitalizations patient has been offered low-dose antidepressant medication to help with mood and affect lability which appear to mostly be from his personality structure given no report of any sustained low mood states outside the context of his substance use and constant interpersonal difficulties. Patient has a tendency to externalize blame and becomes even more irate and angry when this is pointed out to him as well as his ongoing use of substances. Patient has been offered during both hospitalizations coordination for post discharge substance treatment but has refused on both occasions despite availability of care. Patient denied any suicidal ideation throughout his hospital stay. Patient was not suicidal or homicidal at the time of his discharge but continues to blame staff for his phone not being charged and for his current situation. Low to moderate risk of harm to self or others given ongoing personality structure issues of externalizing blame for his ongoing substance use and interpersonal difficulties with likely elevation of his risk if he continues to use substances and acting unexpectedly and impulsively secondary to his personality and substance use which may potentially lead to harming himself. Patient's personality based and substance based harm risk is impossible to mitigate by medication or hospitalization alone but patient was placed on involuntary hold for 96-hour period for observation given his recent escalation of personality based episodes of anger and irritability. Patient was also offered low-dose antidepressant per above as well as post discharge substance treatment and counseling to help mitigate his risk, but he refused. Patient refuses to acknowledge the above recommendations provided to help mitigate his risk of harm to self and others and continues to only blame the hospital and staff for his situation. Involuntary Hold Information 96 Hour Hold: 96 Hour Involuntary Admission: Yes 96 Hour Hold Start Date: 06/21/20 96 Hour Hold Ending Date: 07/03/20 96 Hour Hold Ending Time: 21:59 Mental Status Exam MSE Comments: Standing in his room, irritable, poor rapport, rude Psychomotor activity is neither increased nor decreased, no agitation Speech is loud on occasion, spontaneous, not pressured, fair articulation No stated mood, irritable and angry Alert and oriented to person, place, time Memory and concentration appear to be fair based on interview Thought process, linear but brief, no flight of ideas, no looseness of association Thought content, no delusions, no flight of ideas, no looseness of associations Insight and judgment appear to be poor given patient's lack of insight into his situation, substance use and its contribution to his problems as well as lack of insight into the events leading to his hospitalization Discharge Data Vitals: Last Vital Signs Temp 98.4 F 07/02/20 09:28 Pulse 116 H 07/02/20 09:28 Resp 18 07/02/20 09:28 BP 137/85 07/02/20 09:28 Pulse Ox 96 07/02/20 09:28 Discharge Plan Discharge Patient Disposition: Home Condition: Stable Prescriptions: New citalopram 20 mg Tablet 10 mg PO DAILY Qty: 30 RF: 0 Discharge Orders: Discharge Order (Routine); Ordered 07/02/20 Ordered By: Darío Ball Referrals: [facility] [Other] (Accepted after 4pm. Friend [facility] to provide transportation.) [facility] [Outside] (Can check for bed on 07/03/20. [facility] need to go to [facility]'s Department for warrant check prior to arrival) Discharge Diet: Regular Discharge Activity: Resume usual activity Patient Instructions: Citalopram (By mouth) Discharge Attestations NPU Time Spent in Discharge Care*: greater than 30 min Status at Discharge: Cognitive status at discharge: cognitively intact, Behavioral status at discharge: can be uncooperative, Functional status at discharge: independent ambulation Overall status at discharge: patient is back to baseline Coding Level of Care Code Acute Site Acquisition Manager for [facility] Fwd Diagnoses Suicidal ideation R45.851 Depressive disorder F32.9 Methamphetamine abuse F15.10 Cannabis abuse F12.10
== END 2020-07-02 09:48 | disposition home or self-care (01) | DRG 881 ==
LOC: ER 22:17 → NP 22:46
PROVIDERS: Emergency Medicine; Admitting Provider Psychiatry & Neurology Psychiatry; Emergency Provider Family Medicine; Visit Provider Psychiatry & Neurology Psychiatry
DX: F32.9 Major depressive disorder, single episode, unspecified (principal); R45.851 Suicidal ideations; F15.10 Other stimulant abuse, uncomplicated; F12.10 Cannabis abuse, uncomplicated; F60.9 Personality disorder, unspecified; F60.2 Antisocial personality disorder; F60.89 Other specific personality disorders
CPT/HCPCS: 12345; 80053; 80306; 80307; 85025; 99284

== ENCOUNTER 2020-07-03 02:53 | Emergency (ER) | payer SELFPAY ==
[2020-07-03 03:00] VITALS: BP 166/108; PULSE 115; RESP 18; TEMP 36.8; O2SAT 97; BMI 20.9
--- NOTE | 2020-07-03 03:02 | XR_ITS ---
WS: [id number] Exam: XR lumbar spine 2-3V* [id number] Date/Time of Exam: 07/03/2020 3:16 AM Reason For Exam: back pain Comparison 02/17/2017. Findings: In the AP projection, the lumbar spine is straight. The sacroiliac joints are open. The facet struc tures are bilaterally symmetrical. In the lateral projection, the lumbar curve is well maintained. The intervertebral disc spaces are intact. No fractures or anomalies of the lumbar spine are noted. XR/XR lumbar spine 2-3V* [id number] IMPRESSION: Negative lumbar spine.
--- NOTE | 2020-07-03 03:02 | W.ED.BACK ---
HPI - Back Pain/Injury General: Chief Complaint: Back Pain/Injury Stated Complaint: BACK INJURY 3 HOURS AGO Time Seen by Provider: 07/03/20 03:00 Source: patient Mode of arrival: ambulatory Limitations: no limitations History of Present Illness: HPI Narrative: 29-year-old male states that he tripped in the snow roughly 1 to 2 hours ago at his house. States he fell backwards onto his back. He has had low back pain since then. He rates his pain a 6 out of 10. He was able ambulate. He states pain is worse with movement improved with rest. Denies hitting his head denies any other injuries. MD elicited complaint: back pain Associated symptoms: Deny abdominal pain, chills, dysuria, fever(s), nausea or vomiting Review of Systems Const: Denies: fever(s), chills, body aches or change in appetite Eyes: Denies: blurry vision or eye discomfort ENMT: Denies: throat pain or dental pain Card: Denies: chest pain Resp: Denies: dyspnea GI: Denies: abdominal pain, nausea, vomiting or diarrhea : Denies: dysuria Musc: Reports: back pain Skin/Breast: Denies: rash Neuro: Denies: headache(s) Psych: Denies: depression Harrison/Lymph: Denies: easy bruising All/Imm: Denies: urticaria Physical Exam Const: COMMON NORMALS: no acute distress, patient oriented x3 and healthy appearing HENMT: COMMON NORMALS: normocephalic and atraumatic HEAD & SCALP: normocephalic and atraumatic Eye: COMMON NORMALS: Equal, round and reactive pupils present and EOMs intact bilaterally PUPIL: Yes Equal, round and reactive pupils present Neck/C-Spine: COMMON NORMALS: full ROM and supple Chest: COMMONS NORMALS: normal inspection of the chest and normal palpation of entire chest wall Resp: COMMON NORMALS: normal respiratory effort, No retractions, No use of accessory muscles and clear to auscultation bilaterally AUSCULTATION: clear to auscultation bilaterally Cardio: COMMON NORMALS: regular rate, regular rhythm and No murmurs present (Cardio) RATE: regular rate RHYTHM: regular rhythm GI: COMMON NORMALS: Normal to inspection, nondistended, normoactive bowel sounds present, Soft to palpation, non-tender and no masses PALPATION: Yes Soft to palpation Back/Pelvis: OTHER: Paraspinal lumbar tenderness with no midline tenderness Extremity: COMMON NORMALS: normal to inspection and full ROM Neuro: COMMON NORMALS: patient oriented x3, moves all extremities and no focal motor deficits Psych: COMMON NORMALS: mental status grossly normal, Normal thought process present and cooperative THOUGHT PROCESS: Normal thought process present Skin: COMMON NORMALS: no rashes or lesions noted and no wounds GENERAL SKIN EXAM: no rashes or lesions noted Course Vital Signs: Vital signs: Vital Signs Temperature 98.2 F 07/03/20 03:00 Pulse Rate 115 H 07/03/20 03:00 Respiratory Rate 18 07/03/20 03:00 Blood Pressure 166/108 07/03/20 03:00 Pulse Oximetry 97 07/03/20 03:00 MDM - Back Pain/Injury MDM Narrative: Medical decision making narrative: Patient presents [facility] here with low back pain likely a low back contusion. Patient's x-ray here shows no fracture. Will place him on Naprosyn and Robaxin he is to ice. He is stable for discharge and is to follow-up his PCP and return if worsening. Imaging Data^: xr lumbar: Attestation: I personally reviewed and interpreted this imaging study as follows: My impression: no acute abnormality Discharge Plan Discharge Patient Disposition: Home Clinical Impression: Low back pain Qualifiers: Chronicity: acute Back pain laterality: bilateral Sciatica presence: without sciatica Qualified Code(s): M54.5 - Low back pain Fall Qualifiers: Encounter type: initial encounter Qualified Code(s): W19.XXXA - Unspecified fall, initial encounter Condition: Stable Prescriptions: New Robaxin-750 750 mg tablet 750 mg PO Q6H Qty: 30 RF: 0 Naprosyn 500 mg tablet 500 mg PO BID PRN (Reason: pain) Qty: 20 RF: 0 No Action citalopram 20 mg Tablet 10 mg PO DAILY Qty: 30 RF: 0 Discharge Orders: Discharge ED (Routine); Ordered 07/03/20 Ordered By: Sammy Marquis Discharge Diet: Advance as tolerated Discharge Activity: Resume usual activity Patient Instructions: Back Pain (ED) Coding Level of Care Code ED [employer] Screen Printer Machine for [facility] Fwd Exam Comprehensive
[2020-07-03] MEDS: naproxen 500 mg Tablet PO (03:59)
[2020-07-03 04:00] VITALS: BP 154/78; PULSE 87; RESP 16; O2SAT 99
== END 2020-07-03 04:02 | disposition home or self-care (01) ==
PROVIDERS: Emergency Provider Emergency Medicine
DX: M54.5 Low back pain (principal); W01.0XXA Fall on same level from slipping, tripping and stumbling without subsequent striking against object, initial encounter
CPT/HCPCS: 12345; 72100; 99281; 99283

== ENCOUNTER 2020-08-25 15:17 | Emergency (ER) | payer SELFPAY ==
[2020-08-25 15:25] VITALS: BP 149/71; PULSE 81; RESP 14; TEMP 36.9; O2SAT 99; BMI 20.3
[2020-08-25] MEDS: LORazepam 1 mg Tablet PO (16:21)
--- NOTE | 2020-08-25 16:22 | ED_ITS ---
HPI - Anxiety General: Chief Complaint: Anxiety Stated Complaint: anxiety Time Seen by Provider: 08/25/20 15:53 History of Present Illness: HPI narrative: The patient is a 29-year-old male who comes to the ER complaining of severe anxiety. Denies suicidal and homicidal ideations. He says he used to have a prescription for chronic pain back when he lived in [place] that helped control his symptoms but he has been out for months. He took a hit of methamphetamine 4 days ago and he says it sent his anxiety through the roof. He it took him 45 minutes to get out of his car to even come into the ER because he is so anxious. I discussed with him he should discontinue all illegal drugs as they will make his anxiety worse. MD complaint: anxiety Severity: moderate Quality: constant Place: home History of similar episodes: Yes Relieving factors: nothing Associated symptoms: Reports no associated symptoms; Deny chest pain, confusion, headache(s) or palpitations Review of Systems General: Reports: 10 or more systems reviewed and unremarkable except in HPI and below Const: Denies: fatigue Eyes: Denies: change in vision, blurry vision or eye redness ENMT: Denies: throat pain, swelling of lips/tongue, ear or mastoid pain or nasal congestion Card: Denies: chest pain, palpitations, irregular heart rhythm, edema, dyspnea on exertion or orthopnea Resp: Denies: dyspnea, productive cough or non-productive cough GI: Denies: abdominal pain, diarrhea or GI cramping : Denies: flank pain, urinary frequency or urinary urgency Musc: Denies: neck pain, back pain, extremity pain, joint pain, joint redness, limited range of motion or muscle weakness Skin/Breast: Denies: rash, pruritus, erythema, skin pain or skin tenderness Neuro: Denies: headache(s), numbness in extremities, weakness in extremities, sensory changes, difficulty walking, dizziness, confusion or Slurred speech present Psych: Reports: anxiety; Denies: depression Endo: Denies: polyuria All/Imm: Denies: urticaria, throat swelling or tongue swelling Physical Exam Const: COMMON NORMALS: no acute distress, average body habitus, patient oriented x3, no limitations, healthy appearing, alert and well nourished GENERAL APPEARANCE: cooperative, comfortable and anxious ORIENTATION/CONSCIOUSNESS: Yes awake, Yes oriented to person, Yes oriented to place and Yes oriented to time HENMT: COMMON NORMALS: normocephalic, external ears normal and Normal external nose present HEAD & SCALP: normal to inspection and normocephalic NOSE: Normal external nose present EXTERNAL EAR: Yes external ears normal MOUTH: Normal oral and palatal mucosa present THROAT: posterior oropharynx normal Eye: COMMON NORMALS: Equal, round and reactive pupils present and EOMs intact bilaterally GENERAL EYE: appearance normal, both eyes and all related structures PUPIL: Yes Equal, round and reactive pupils present Neck/C-Spine: COMMON NORMALS: full ROM, no lymphadenopathy, no meningeal signs and no JVD GENERAL: Yes normal visual inspection Lymph: LYMPHATIC: no lymphadenopathy noted Chest: COMMONS NORMALS: normal inspection of the chest and normal palpation of entire chest wall Resp: COMMON NORMALS: normal respiratory effort, No retractions, No use of accessory muscles, clear to auscultation bilaterally and percussion normal EFFORT & INSPECTION: Yes able to speak in complete sentences AUSCULTATION: clear to auscultation bilaterally PERCUSSION: percussion normal Cardio: COMMON NORMALS: no JVD, regular rate, regular rhythm, S1 normal heart sound present, S2 normal heart sound present and Peripheral pulses 2+ throughout RATE: regular rate RHYTHM: regular rhythm HEART SOUNDS: S1 normal heart sound present and S2 normal heart sound present PERIPHERAL PULSES: Peripheral pulses 2+ throughout GI: COMMON NORMALS: Normal to inspection, nondistended, normoactive bowel sounds present, Soft to palpation, non-tender and no masses INSPECTION: Yes normal to inspection PALPATION: Yes Soft to palpation : COMMON NORMALS: Yes no CVA tenderness BLADDER/KIDNEY EXAM: Yes no CVA tenderness Back/Pelvis: COMMON NORMALS: no CVA tenderness, thoracic and lumbar spine n ormal to inspection, no thoracic nor lumbar tenderness and thoraco-lumbar ROM normal Extremity: COMMON NORMALS: normal to inspection, full ROM, capillary refill normal, no joint enlargement and no pedal edema GENERAL: Yes normal exam except as noted Neuro: COMMON NORMALS: patient oriented x3, CN's II-XII intact bilaterally, moves all extremities, no focal motor deficits, no sensory deficits noted and gait normal SENSORIUM/ORIENTATION: Yes alert, Yes oriented to person, Yes oriented to place and Yes oriented to time MENINGEAL SIGNS: Yes no meningeal signs Psych: COMMON NORMALS: mental status grossly normal, Normal thought process present, cooperative, normal affect and speech normal ATTITUDE: Yes calm SPEECH: Yes normal speech MOOD & AFFECT: Yes anxious THOUGHT PROCESS: Normal thought process present Skin: COMMON NORMALS: no rashes or lesions noted GENERAL SKIN EXAM: no rashes or lesions noted Course Vital Signs: Vital signs: Vital Signs Temperature 98.4 F 08/25/20 15:25 Pulse Rate 81 08/25/20 15:25 Respiratory Rate 14 08/25/20 15:25 Blood Pressure 149/71 08/25/20 15:25 Pulse Oximetry 99 08/25/20 15:25 MDM - Anxiety MDM Narrative: Medical decision making narrative: Patient came in with an acute panic attack. Given a milligram of Ativan with good relief of his sympto ms. Stable for discharge with a small prescription of them. Discussed not to mix it with alcohol or drugs and to cease use of drugs. Also cannot drive while taking this medication. He got a ride here. ER with worsening symptoms. Placed a case management referral to help him get an appointment with primary care Discharge Plan Discharge Patient Disposition: Home Clinical Impression: Acute anxiety Condition: Stable Prescriptions: New Klonopin 0.5 mg tablet 0.5 mg PO Q12H PRN (Reason: anxiety) Qty: 7 RF: 0 No Action No Known Home Medications RF: 0 Discharge Orders: Discharge ED (Routine); Ordered 08/25/20 Ordered By: Conner Melendrez Discharge Diet: Advance as tolerated Discharge Activity: Resume usual activity Patient Instructions: Anxiety (ED), Opioid Safety Activity Restrictions/Additional Instructions: Take the Klonopin only for severe anxiety and do not mix with alcohol and drugs. Do not operate machinery while taking it also. Also cease use of alcohol and illegal drugs entirely. Return to the ER with worsening symptoms otherwise set up with a primary care physician. I have placed a case management referral to help you get an appointment with a primary care physician. They should be calling you tomorrow to help set this up Coding Level of Care Code ED Interstate Bus Dispatcher for [facility] Fwd Exam Comprehensive
[2020-08-25 17:08] VITALS: BP 134/74; PULSE 98; RESP 18; O2SAT 98
--- NOTE | 2020-08-26 13:53 | DCPLANNER ---
prototype engineer manager had message to speak with patient about getting established with a primary care physician. prototype engineer manager called phone number [phone], it was a busy signal. prototype engineer manager unable to speak with patient or leave patient a voicemail at this time.
== END 2020-08-25 17:12 | disposition home or self-care (01) ==
PROVIDERS: Emergency Provider Family Medicine
DX: F41.9 Anxiety disorder, unspecified (principal)
CPT/HCPCS: 99283

== ENCOUNTER 2020-08-26 17:23 | Emergency (ER) | payer SELFPAY ==
[2020-08-26 17:24] VITALS: BP 145/97; PULSE 89; RESP 18; TEMP 36.2; O2SAT 97; BMI 21.7
--- NOTE | 2020-08-26 18:01 | W.ED.ANXIETY ---
HPI - Anxiety General: Chief Complaint: Anxiety Stated Complaint: ANXIETY/HERE RECENTLY Time Seen by Provider: 08/26/20 17:42 History of Present Illness: HPI narrative: Patient is a 29-year-old male who comes to the ED with acute anxiety. Patient was seen here yesterday for same complaint and was sent home with a prescription for clonazepam. Patient did not get his prescription filled yesterday and returns with anxiety. Patient says he did not get his prescription filled yesterday because he did not have the money. Associated symptoms: Deny chest pain, chills, fever(s), headache(s), nausea, palpitations or vomiting Review of Systems Const: Denies: fever(s), chills or fatigue Eyes: Denies: change in vision or eye discomfort ENMT: Denies: throat pain, odynophagia, nasal discharge or nasal congestion Card: Denies: chest pain, palpitations, edema, swelling of feet/ankles, dyspnea on exertion or orthopnea Resp: Denies: dyspnea, productive cough or non-productive cough GI: Denies: abdominal pain, nausea, vomiting, diarrhea, constipation or hematochezia : Denies: flank pain, difficulty urinating, dysuria or hematuria Musc: Denies: neck pain, back pain or extremity swelling Skin/Breast: Denies: rash or new lesions Neuro: Denies: headache(s), numbness in extremities or weakness in extremities Psych: Reports: anxiety Physical Exam Const: COMMON NORMALS: no acute distress, patient oriented x3, healthy appearing and alert HENMT: COMMON NORMALS: normocephalic HEAD & SCALP: normocephalic MOUTH: Normal oral and palatal mucosa present THROAT: posterior oropharynx normal and uvula midline Neck/C-Spine: COMMON NORMALS: supple GENERAL: Yes normal visual inspection Resp: COMMON NORMALS: normal respiratory effort, No retractions, No use of accessory muscles and clear to auscultation bilaterally AUSCULTATION: clear to auscultation bilaterally Cardio: COMMON NORMALS: regular rate, regular rhythm, S1 normal heart sound present, S2 normal heart sound present, No gallops present (Cardio), No clicks present (Cardio), No murmurs present (Cardio) and Peripheral pulses 2+ throughout RATE: regular rate RHYTHM: regular rhythm HEART SOUNDS: S1 normal heart sound present and S2 normal heart sound present PERIPHERAL PULSES: Peripheral pulses 2+ throughout GI: COMMON NORMALS: Normal to inspection, nondistended, normoactive bowel sounds present, Soft to palpation, non-tender and no masses PALPATION: Yes Soft to palpation : COMMON NORMALS: Yes no CVA tenderness BLADDER/KIDNEY EXAM: Yes no CVA tenderness Back/Pelvis: COMMON NORMALS: no CVA tenderness Extremity: COMMON NORMALS: normal to inspection Neuro: COMMON NORMALS: patient oriented x3 and moves all extremities SENSORIUM/ORIENTATION: Yes alert Psych: MOOD & AFFECT: Yes anxious Skin: GENERAL SKIN EXAM: dry skin Course ED course: The hospital pharmacy technician printed out some good Rx prescription discount for patient's clonazepam prescription. I gave those pronounced to patient so he can use that to help reduce cost of medication. Vital Signs: Vital signs: Vital Signs Temperature 97.2 F L 08/26/20 17:24 Pulse Rate 89 08/26/20 17:24 Respiratory Rate 18 08/26/20 17:24 Blood Pressure 145/97 08/26/20 17:24 Pulse Oximetry 97 08/26/20 17:24 MDM - Anxiety MDM Narrative: Medical decision making narrative: Patient is a 29-year-old male comes to the ED with acute anxiety. Patient was seen here for same symptoms yesterday August 25. He was sent home with a prescription for clonazepam to help with anxiety but he has not gotten it filled yet. He says he does not have the money to get it filled. Here in the ED patient was given a dose of clonazepam and the hospital pharmacy technician printed off some good Rx prescription discount waivers for patient to use to help with clonazepam prescription cost. Patient was discharged home and told to fill his clonazepam prescription to help with his symptoms. Patient understood and agreed with plan. Return to ED precautions given. Discharge Plan Discharge Patient Disposition: Home Clinical Impression: Acute anxiety Condition: Stable Prescriptions: No Action clonazepam [Klonopin] 0.5 mg tablet 0.5 mg PO Q12H PRN (Reason: anxiety) Qty: 7 RF: 0 Discharge Orders: Discharge ED (Routine); Ordered 08/26/20 Ordered By: Jorge Sabillon Discharge Diet: Regular Discharge Activity: Resume usual activity Patient Instructions: Anxiety (ED) Activity Restrictions/Additional Instructions: Follow-up with medical provider as directed in 7 to 10 days for reevaluation. Make sure to get your prescription filled and take medication as prescribed. Return to the ER or your medical provider if condition worsens. Please read and understand discharge instructions. If any questions, please ask. Coding Level of Care Code ED Electroneurodiagnostic Technician for [employer] Fwd Exam Comprehensive
--- NOTE | 2020-08-26 18:16 | PC.PHAR ---
pt states he takes no medications-pt states he didnt have the money to get the klonopin filled that he got in 08/25/20
[2020-08-26] MEDS: CLONazepam 1 mg Tablet PO (18:24)
== END 2020-08-26 18:26 | disposition home or self-care (01) ==
PROVIDERS: Emergency Provider Physician Assistant
DX: F41.9 Anxiety disorder, unspecified (principal)
CPT/HCPCS: 99283

== ENCOUNTER 2020-09-07 21:13 | Emergency (ER) | payer SELFPAY ==
[2020-09-07 21:21] VITALS: BP 153/101; PULSE 97; RESP 18; TEMP 36.8; O2SAT 97; BMI 21.7
--- NOTE | 2020-09-07 21:27 | W.ED.PSYCH ---
Documented by User: [email or web address] Merida 09/08/20 02:34 HPI - Psych General: Chief Complaint: Psychiatric Symptoms Stated Complaint: anxiety Time Seen by Provider: 09/07/20 21:26 History of Present Illness: HPI Narrative: Patient is a 29-year-old male comes to the ED with acute anxiety. Patient has been seen here previously for same complaint on August 26 and on August 25. Patient takes Klonopin to treat acute anxiety. Patient was discharged with a prescription for 7 Klonopin tablets and case management order was placed back on August 25 for patient to be referred to a primary care physician. Patient says he ran out of his Klonopin approximately 2 days ago and he has not gotten an appointment set up with primary care doctor yet. Patient says he has the skin of anxiety in the past and he describes it as feeling like everybody is looking at him. Denies any SI or HI. Associated symptoms: Deny depression, homicidal ideation or suicidal ideation Review of Systems Const: Denies: fever(s), chills or fatigue Eyes: Denies: change in vision or eye discomfort ENMT: Denies: throat pain, odynophagia, nasal discharge or nasal congestion Card: Denies: chest pain, palpitations, edema, swelling of feet/ankles, dyspnea on exertion or orthopnea Resp: Denies: dyspnea, productive cough or non-productive cough GI: Denies: abdominal pain, nausea, vomiting, diarrhea, constipation or hematochezia : Denies: flank pain, difficulty urinating, dysuria or hematuria Musc: Denies: neck pain, back pain or extremity swelling Skin/Breast: Denies: rash or new lesions Neuro: Denies: headache(s), numbness in extremities or weakness in extremities Psych: Reports: anxiety; Denies: depression, suicidal ideation or homicidal ideation Physical Exam Const: COMMON NORMALS: no acute distress, patient oriented x3 and alert GENERAL APPEARANCE: cooperative, comfortable and anxious HENMT: COMMON NORMALS: normocephalic HEAD & SCALP: normocephalic MOUTH: Normal oral and palatal mucosa present THROAT: posterior oropharynx normal and uvula midline Neck/C-Spine: COMMON NORMALS: supple GENERAL: Yes normal visual inspection Resp: COMMON NORMALS: normal respiratory effort, No retractions, No use of accessory muscles and clear to auscultation bilaterally AUSCULTATION: clear to auscultation bilaterally Cardio: COMMON NORMALS: regular rate, regular rhythm, S1 normal heart sound present, S2 normal heart sound present, No gallops present (Cardio), No clicks present (Cardio), No murmurs present (Cardio) and Peripheral pulses 2+ throughout RATE: regular rate RHYTHM: regular rhythm HEART SOUNDS: S1 normal heart sound present and S2 normal heart sound present PERIPHERAL PULSES: Peripheral pulses 2+ throughout GI: COMMON NORMALS: Normal to inspection, nondistended, normoactive bowel sounds present, Soft to palpation, non-tender and no masses PALPATION: Yes Soft to palpation : COMMON NORMALS: Yes no CVA tenderness BLADDER/KIDNEY EXAM: Yes no CVA tenderness Back/Pelvis: COMMON NORMALS: no CVA tenderness Extremity: COMMON NORMALS: normal to inspection Neuro: COMMON NORMALS: patient oriented x3 and moves all extremities SENSORIUM/ORIENTATION: Yes alert Psych: COMMON NORMALS: speech normal APPEARANCE: Yes grossly normal ATTITUDE: Yes calm ACTIVITY/MOTOR BEHAVIOR: Yes appropriate eye contact SPEECH: Yes normal speech MOOD & AFFECT: Yes anxious THOUGHT CONTENT: No Suicidality present and No Homicidality present INSIGHT: Good insight present (Psych) JUDGEMENT: Good judgement present (Psych) Skin: GENERAL SKIN EXAM: dry skin MDM - Psych MDM Narrative: Medical decision making narrative: Patient is a 29-year-old male comes to the ED with anxiety. Patient was seen here in the ED for same complaint on August 25 August 26. He was discharged home then with a prescription for clonazepam. Patient says that somebody at the hospital as well as to be in contact with him to get him set up with a PCP or behavioral health and he said his phone contact information had changed and is probably likely why they were not able to get a hold of him. Patient's been out of his clonazepam now for several days. Denies any SI or HI. Patient was given clonazepam here in the unit and his symptoms improved. He was discharged home with a prescription for clonazepam 0.5 mg 8 tabs and I placed order with case management for patient to be referred to behavioral health or PCP. Return to ED precautions given. Told patient to get prescription filled and that he will be getting a call from case management to set up an appointment with either behavioral health or PCP in the next couple days. Patient understood and agreed with plan. Discharge Plan Discharge Patient Disposition: Home Clinical Impression: Acute anxiety Condition: Stable Prescriptions: No Action clonazepam [Klonopin] 0.5 mg tablet 0.5 mg PO Q12H PRN (Reason: anxiety) Qty: 7 RF: 0 Discharge Orders: Discharge ED (Routine); Ordered 09/07/20 Ordered By: Jorge Sabillon Discharge Diet: Regular Discharge Activity: Resume usual activity Patient Instructions: Clonazepam (By mouth), Anxiety (ED) Activity Restrictions/Additional Instructions: Follow-up with medical provider as directed. Case management will be contacting you in the next several days to set up an appointment with PCP or behavioral health. Take medications as prescribed. Return to the ER or your medical provider if condition worsens. Please read and understand discharge instructions. If any questions, please ask. Coding Level of Care Code ED Partner Marketing Manager for Chg Fwd Exam Comprehensive Documented by User: Jasper Alicia DO 09/08/20 05:08 HPI - Psych General: Chief Complaint: Psychiatric Symptoms Stated Complaint: anxiety Time Seen by Provider: 09/07/20 21:26 MDM - Psych MDM Narrative: Medical decision making narrative: 29-year-old male complains of acute anxiety. He is originally seen by Mr. Ridge PA-C. I agree with his history, evaluation, and treatment. Close out patient follow-up as suggested Discharge Plan Discharge Patient Disposition: Home Clinical Impression: Acute anxiety Condition: Stable Prescriptions: No Action clonazepam [Klonopin] 0.5 mg tablet 0.5 mg PO Q12H PRN (Reason: anxiety) Qty: 7 RF: 0 Discharge Orders: Discharge ED (Routine); Ordered 09/07/20 Ordered By: Jorge Sabillon Discharge Diet: Regular Discharge Activity: Resume usual activity Patient Instructions: Clonazepam (By mouth), Anxiety (ED) Activity Restrictions/Additional Instructions: Follow-up with medical provider as directed. Case management will be contacting you in the next several days to set up an appointment with PCP or behavioral health. Take medications as prescribed. Return to the ER or your medical provider if condition worsens. Please read and understand discharge instructions. If any questions, please ask. Coding Level of Care Code ED Partner Marketing Manager for Chg Fwd Exam Comprehensive
[2020-09-07 21:41] VITALS: PULSE 90; RESP 16; O2SAT 98
[2020-09-07] MEDS: CLONazepam 0.5 mg Tablet PO (21:44)
[2020-09-07 23:34] VITALS: BP 135/102; PULSE 102; RESP 17; TEMP 36.8; O2SAT 98
--- NOTE | 2020-09-10 11:38 | DCPLANNER ---
late entry - vocational case manager had message to speak with patient about getting established with a primary care physician or services at [facility]. meat and seafood manager called phone number [phone], unable to speak with patient at this time, and unable to leave a voicemail due to no voicemail box set up at this time.
== END 2020-09-07 23:35 | disposition home or self-care (01) ==
PROVIDERS: Emergency Provider Physician Assistant
DX: F41.9 Anxiety disorder, unspecified (principal)
CPT/HCPCS: 99282